=== PATIENT | male | born 1970 | race Caucasian/White ===

== ENCOUNTER 2021-05-02 09:25 | Inpatient (IN) | payer OTHER ==
[~2021-05-02] VITALS: Ht 198.1 cm; Wt 78.0 kg
--- NOTE | 2021-05-02 09:55 | NUR ---
Placed pt on NPO.
--- NOTE | 2021-05-02 09:55 | NUR ---
Dr La spoke to Dr Rodriguez, gen surgeon.
--- NOTE | 2021-05-02 09:57 | NUR ---
MARIEL BUTTERFIELD spoke to Dr Chisholm, Orthopedic surgeon.
[2021-05-02] MEDS ORDERED: MORPHINE SULFATE 4 MG/1 ML DISP.SYRIN ONE (09:58)
[2021-05-02] MEDS ORDERED: IV NORMAL SALINE 1000 ML BAG IV ONE (10:15)
[2021-05-02] MEDS ORDERED: CEFAZOLIN 2 G in IV DEXTROSE 5% 100 ML IV ONE (10:15)
[2021-05-02] MEDS ORDERED: MORPHINE SULFATE 4 MG/1 ML DISP.SYRIN IM ONE (10:15)
[2021-05-02] MEDS ORDERED: CEFAZOLIN 1 G VIAL ONE ×2 (10:19→10:26)
[2021-05-02 10:26] LABS: HEMATOCRIT 43.1 % (36.7-47.1); MEAN CORPUSCULAR HEMOGLOBIN 32.1 uug (23.8-33.4); MEAN CORPUSCULAR VOLUME 91.6 fL (73.0-96.2); PLATELET COUNT (AUTO) 171 K/uL (152-348)
[2021-05-02 10:34] LABS: CREATININE 1.1 mg/dL (0.6-1.3); POTASSIUM 4.6 mmol/L (3.5-5.1)
--- NOTE | 2021-05-02 10:44 | NUR ---
Pt is to be admitted to M/S by Dr Worrell.
[2021-05-02 10:45] LABS: BILIRUBIN,DIRECT 0.3 mg/dL (0.0-0.2); BILIRUBIN,TOTAL 1.3 mg/dL (0.2-1.0); TOTAL PROTEIN, SERUM 7.9 g/dL (6.4-8.2)
[2021-05-02] MEDS ORDERED: ACETAMINOPHEN 325 MG TABLET PO PRN (10:45)
[2021-05-02] MEDS ORDERED: INSULIN REGULAR, HUMAN 300 UNITS/3 ML VIAL SQ PRN (10:45)
[2021-05-02] MEDS ORDERED: DEXTROSE 50% 50 ML DISP.SYRIN IV PRN (10:45)
[2021-05-02] MEDS ORDERED: Z GUARD REMEDY PASTE 57 GM TUBE TOP PRN (10:45)
[2021-05-02] MEDS ORDERED: HYDROCODONE/APAP 5-325MG TABLET PO PRN (10:45)
[2021-05-02] MEDS ORDERED: ONDANSETRON 4 MG/2 ML VIAL IV PRN (10:45)
[2021-05-02] MEDS ORDERED: MAGNESIUM HYDROXIDE 30 ML LIQUID UDC PO PRN (10:45)
[2021-05-02] MEDS ORDERED: IV 1/2NS 1000 ML 1,000 ML IV PRN (10:45)
[2021-05-02] MEDS ORDERED: INSULIN REGULAR, HUMAN 10 UNIT in IV NORMAL SALINE 100 ML IV ONE (10:45)
--- NOTE | 2021-05-02 11:00 | NUR ---
admitted patient from ER dx: left forearm laceration, patient is alert oriented and able to make needs known. Patient is ambulatory, gait is stable. currently on NPO for expected surgery to left f/a. iv site to right wrist gauge [address] left f/a laceration wrapped with kerlix and reinforced. patient oriented to unit, reminded to use call light for help.
[2021-05-02] MEDS ORDERED: ASPI-612 PO (11:02)
[2021-05-02 11:46] LABS: *BILIRUBIN,URIN NEGATIVE (NEGATIVE); *BLOOD, URINE NEGATIVE (NEGATIVE); *CLARITY,URINE CLEAR (CLEAR); *COLOR,URINE YELLOW (YELLOW); *KETONES,URINE NEGATIVE (NEGATIVE); *UROBILINOGEN,URINE 0.2 E.U./dl (NORMAL); LEUKOCYTE ESTERASE ,URINE NEGATIVE (NEGATIVE); NITRITE, URINE NEGATIVE (NEGATIVE); UGLUCOSE 2+ (NEGATIVE)
[2021-05-02 11:52] VITALS: BP 133/81
[2021-05-02] MEDS: BLOOD SUGAR DIAGNOSTIC 1 EACH STRIP VI SCH ×3 (12:12→20:24)
[2021-05-02] MEDS: INSULIN REGULAR, HUMAN 300 UNIT/3 ML VIAL SQ PRN ×2 (12:15→17:37)
[2021-05-02] MEDS ORDERED: VANCOMYCIN 1000 MG VIAL ONE (13:44)
[2021-05-02] MEDS ORDERED: POLYMYXIN B SULFATE 500,000 UNITS VIAL ONE (13:44)
--- NOTE | 2021-05-02 13:49 | NUR ---
patient to be picked up by surgery at 1400, to have a left forearm irrigation, debridement and closure, all consent forms obtained, pre-op check list completed.
[2021-05-02] MEDS ORDERED: ONDANSETRON 4 MG/2 ML VIAL IV ONE (14:00)
[2021-05-02] MEDS ORDERED: METOCLOPRAMIDE HCL 10 MG/2 ML VIAL IV ONE (14:00)
[2021-05-02] MEDS ORDERED: DEXAMETHASONE SOD PHOSPHATE 4 MG INJ IV ONE (14:00)
[2021-05-02] MEDS ORDERED: CLINDAMYCIN PHOSPHATE IV 600 MG in IV DEXTROSE 5% 100 ML IV SCH (14:00)
[2021-05-02] MEDS ORDERED: LIDOCAINE-MPF 2% 5 ML VIAL IJ ONE (14:00)
[2021-05-02] MEDS ORDERED: BUPIVACAINE 0.25% 30 ML VIAL ONE ×2 (14:19→14:39)
[2021-05-02] MEDS ORDERED: FAMOTIDINE. 20 MG/2 ML VIAL IV ONE (14:24)
[2021-05-02] MEDS ORDERED: HYDROMORPHONE 2 MG/1 ML DISP.SYRIN ONE ×2 (14:35→14:56)
[2021-05-02 14:53] LABS: BACTERIA,URINE FEW /HPF (NONE SEEN); RBC,URINE 0-3 /HPF (0-3); SQUAMOUS EPITHELIAL CELL,UR FEW /HPF (NONE SEEN); URINE AMORPHOUS URATE FEW /HPF
[2021-05-02 14:54] LABS: MUCUS,URINE FEW /LPF (0-FEW)
--- NOTE | 2021-05-02 16:12 | NUR ---
patient returned from surgery, awake alert and oriented able to make needs known. No c/o pain at this time. Pt has a sling to the left hand, order to keep arm elevated. patient able to wiggle fingers.
[2021-05-02 16:44] VITALS: BP 133/85
[2021-05-02] MEDS ORDERED: MORPHINE SULFATE 4 MG/1 ML DISP.SYRIN IV PRN (17:00)
[2021-05-02] MEDS ORDERED: IV D5W-0.45% NS +20 KCL 1,000 ML IV PRN (17:00)
[2021-05-02] MEDS: CLINDAMYCIN PHOSPHATE IV 600 MG in IV DEXTROSE 5% 100 ML IV SCH (17:19)
--- NOTE | 2021-05-02 19:00 | NUR ---
endorsement given to oncoming shift.
[2021-05-02 20:00] VITALS: BP 120/72
--- NOTE | 2021-05-02 20:00 | NUR ---
RECEIVED PATIENT AWAKE IN BED. A/O X4. LEFT ARM ELEVATED ON PILLOWS. ORIGINAL DRESSING DRY AND INTACT. PATIENTS NEURO-VASCULAR CHECKS WNL. PULSE PRESENT. VS WNL. IV HEPLOCK NOTED TO RIGHT WRIST, DISLODGED, REMOVED AND RESTARTED IV TO RIGHT FA #20 GAUGE WITH IVF INFUSING WELL. PATIENT DENIES ANY PAIN AT THIS TIME. NO RESP. DISTRESS NOTED. CALL LIGHT IN REACH. ALL NEEDS ATTENDED. WILL CONTINUE TO MONITOR AND ASSESS.
[2021-05-03] MEDS: CLINDAMYCIN PHOSPHATE IV 600 MG in IV DEXTROSE 5% 100 ML IV SCH ×2 (01:04→08:26)
[2021-05-03 04:00] VITALS: BP 115/77
[2021-05-03] MEDS: HYDROCODONE/APAP 10-325 MG TABLET PO PRN ×2 (06:11→12:44)
[2021-05-03] MEDS: BLOOD SUGAR DIAGNOSTIC 1 EACH STRIP VI SCH ×2 (06:11→12:05)
--- NOTE | 2021-05-03 06:15 | NUR ---
Patient awake in bed. starting to feel pain, c/o 02/09. patient given Anatone 1 tab po prn for pain. Ivf discontinued per dr. lara, once patient is tolerating po fluids. patient denies any nausea at this time. tolerating fluids well. All needs attended. will continue to monitor and assess.
--- NOTE | 2021-05-03 07:30 | NUR ---
Patient received sitting at the edge of bed, alert and oriented x4, [place] speaking, but able to make needs known. Left FA dressing C/D/I. Right FA IV patent with no redness or swelling. On RA with no SOB or difficulties breathing. Reports no pain at this time. Call light within easy reach. Will continue to monitor.
[2021-05-03 07:37] LABS: HEMATOCRIT 36.7 % (36.7-47.1); MEAN CORPUSCULAR HEMOGLOBIN 31.9 uug (23.8-33.4); PLATELET COUNT (AUTO) 145 K/uL (152-348)
[2021-05-03 07:44] LABS: BILIRUBIN,TOTAL 1.1 mg/dL (0.2-1.0); PHOSPHOROUS 2.8 mg/dL (2.5-4.9); POTASSIUM 4.3 mmol/L (3.5-5.1); TOTAL PROTEIN, SERUM 6.5 g/dL (6.4-8.2)
[2021-05-03] MEDS: INSULIN REGULAR, HUMAN 300 UNIT/3 ML VIAL SQ PRN ×2 (08:30→12:45)
[2021-05-03 11:03] VITALS: BP 106/67
[2021-05-03 15:05] VITALS: BP 145/96
--- NOTE | 2021-05-03 15:30 | NUR ---
Patient does not to go home with home health at this time because he states he would rather take care of it on his own. MELISSA and aware.
--- NOTE | 2021-05-03 16:00 | NUR ---
Patient states he does not want to take wound pictures at this time.
--- NOTE | 2021-05-03 17:00 | NUR ---
Expresses understanding regarding picking up new prescriptions from the pharmacy and regarding following up with wound care clinic. Patient discharged in satisfactory condition.
[2021-05-03] MEDS ORDERED: METOCLOPRAMIDE HCL 10 MG/2 ML VIAL IV ONE (17:14)
[2021-05-03] MEDS ORDERED: KETOROLAC TROMETHAMINE 30 MG INJ IM ONE (17:14)
[2021-05-03] MEDS ORDERED: ONDANSETRON 4 MG/2 ML VIAL IV ONE (17:14)
== END 2021-05-03 17:15 | disposition home or self-care (01) | DRG 351 ==
LOC: ER 09:25 → MEDSURG3 10:55
PROVIDERS: ADMIT Internal Medicine; ATTEND Internal Medicine
PROC: 0JQH3ZZ Repair Left Lower Arm Subcutaneous Tissue and Fascia, Percutaneous Approach (ICD-10-PCS; principal; 2021-05-02)
PROC: 0HDDXZZ Extraction of Right Lower Arm Skin, External Approach (ICD-10-PCS; principal; 2021-05-02)
DX: S56.922A Laceration of unspecified muscles, fascia and tendons at forearm level, left arm, initial encounter (principal); E11.65 Type 2 diabetes mellitus with hyperglycemia; I10 Essential (primary) hypertension; W27.8XXA Contact with other nonpowered hand tool, initial encounter; Y93.H2 Activity, gardening and landscaping; Y92.89 Other specified places as the place of occurrence of the external cause; Y99.0 Civilian activity done for income or pay; Z20.822 Contact with and (suspected) exposure to COVID-19; Z86.73 Personal history of transient ischemic attack (TIA), and cerebral infarction without residual deficits
CPT/HCPCS: 36415; 73090; 83735; 84100; 85025; 85730; 86850; 86900; 86901; 87086; 93005; A4217; A4649; A4663; G0378; J0690; J1100; J1170; J1815; J1885; J2270; J2405; J2765; J3370; J3490; J7030; J7040; J7060